=== PATIENT | male | born 1980 | race Caucasian/White ===

== ENCOUNTER 2021-09-03 12:45 | Outpatient (RCR) | payer OTHER, SELFPAY ==
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
== END 2021-09-04 09:12 ==
LOC: PHYS 12:45
PROVIDERS: Family Provider Family Medicine; PCP Family Medicine; Referring Provider Nurse Practitioner Family; Visit Provider Nurse Practitioner Family
DX: T14.8XXA Other injury of unspecified body region, initial encounter (principal); S16.1XXA Strain of muscle, fascia and tendon at neck level, initial encounter; M54.50 Low back pain, unspecified
CPT/HCPCS: 97110; 97161; 97535